=== PATIENT | female | born 1995 | race Caucasian/White ===

== ENCOUNTER 2018-10-01 21:09 | Inpatient (IN) | payer MEDICAID ==
[~2018-10-01] VITALS: Ht 149.9 cm; Wt 55.3 kg
[2018-10-01 22:17] VITALS: Ht 149.9 cm; Wt 55.3 kg
[2018-10-01] MEDS ORDERED: PREN-19 PO (22:19)
[2018-10-01 22:41] VITALS: BP 106/65; PULSE 88; RESP 16
[2018-10-01] MEDS ORDERED: MISOPROSTOL 200 MCG TAB PR PRN (23:00)
[2018-10-01] MEDS ORDERED: CARBOPROST 250 MCG INJ IM PRN (23:00)
[2018-10-01] MEDS ORDERED: METHYLERGONOVINE 0.2 MG INJ IM PRN (23:00)
[2018-10-01] MEDS ORDERED: OXYTOCIN 30 UNITS/LR 500 ML IV SCH (23:00)
[2018-10-01] MEDS ORDERED: OXYTOCIN 30 UNITS/LR 500 ML IV PRN (23:00)
[2018-10-01] MEDS ORDERED: CEFAZOLIN 2 GM/50 ML (PMX) 50 ML IVPB SCH (23:00)
--- NOTE | 2018-10-02 00:38 | TRIAGE ---
OB Triage Datetime Report Generated by CPN: 10/02/2018 00:38 Datetime: 10/02/2018 00:30 Stage of : Labor Labor Evaluation Frequency: 1-3 Monitor Mode: External Duration (sec)2399: 60 Quality: Moderate Pattern: Normal: <= 5 Contractions in 10 Minutes Resting Tone [place]: Relaxed Heart Rate FHR Baseline Rate: 160 Monitor Mode: External US Variability: Moderate 6-25 bpm Accelerations: 15X15 Decelerations: None Datetime: 10/02/2018 00:00 Stage of : Labor Labor Evaluation Frequency: 1-3 Monitor Mode: External Duration (sec)2399: 60 Quality: Moderate Pattern: Normal: <= 5 Contractions in 10 Minutes Resting Tone [place]: Relaxed Heart Rate FHR Baseline Rate: 160 Monitor Mode: External US Variability: Moderate 6-25 bpm Accelerations: 15X15 Decelerations: None Datetime: 10/01/2018 23:39 Assessment Type: Admission Assessment Vaginal Bleeding: None Maternal Assessment Level of Consciousness: Keenly Alert, Responsive DTR's/Clonus: DTRs 2+; No Clonus Headache: Denies Blurred Vision: No Respiratory Effort: Unlabored; Regular Rhythm; Equal Expansion Breath Sounds, Left: Clear and Equal Breath Sounds, Right: Clear and Equal Nausea/Vomiting: Denies RUQ Epigastric Pain: Denies Lower Extremities Edema: None Degree: None Upper Extremities Edema: None Degree: None Facial Edema: None Fall Risk Assessment History of Falling: (0) No Secondary Diagnosis: (0) No Ambulatory Aid: (0) Bedrest/Nurse Assist IV Therapy: (0) No Gait: (0) Normal/Bedrest/Immobile Mental Status: (0) Oriented to Own Ability Fall Score: 0 Fall Risk Score Definition: No Risk: No action required Labor Evaluation Frequency: 2-3 Duration (sec)2399: 60 Quality: Moderate Pattern: Normal: <= 5 Contractions in 10 Minutes Resting Tone [place]: Relaxed Heart Rate FHR Baseline Rate: 135 Variability: Moderate 6-25 bpm Accelerations: 15X15 Decelerations: None Category: Category I Pain Assessment Pain Scale: 6 Pain Presence: Intermittent Pain Type: Contraction Pain Goal: 0 Membrane Status: Intact Datetime: 10/01/2018 23:38 Time of Arrival: 10/01/2018 21:03 EGA: 38.6 Arrived By: Ambulatory Arrived From: Home Chief Complaint: c/o ucs. States scheduled for PC/S d/t pror 4th degree laceration Time Provider Notified: 10/01/2018 22:33 Provider Notified: Dr Crandall Initial Plan: EFM,SVE Datetime: 10/01/2018 23:30 Stage of : Labor Labor Evaluation Frequency: 1-3 Monitor Mode: External Duration (sec)2399: 60 Quality: Moderate Pattern: Normal: <= 5 Contractions in 10 Minutes Resting Tone [place]: Relaxed Heart Rate FHR Baseline Rate: 135 Monitor Mode: External US Variability: Moderate 6-25 bpm Accelerations: 15X15 Decelerations: None Datetime: 10/01/2018 23:00 Stage of : Labor Labor Evaluation Frequency: 1-3 Monitor Mode: External Duration (sec)2399: 60 Quality: Moderate Pattern: Normal: <= 5 Contractions in 10 Minutes Resting Tone [place]: Relaxed Heart Rate FHR Baseline Rate: 135 Monitor Mode: External US Variability: Moderate 6-25 bpm Accelerations: 15X15 Decelerations: None Datetime: 10/01/2018 22:33 Stage of : OB Triage Datetime: 10/01/2018 22:25 Stage of : OB Triage Labor Evaluation Frequency: 2-3 Monitor Mode: External Quality: Moderate Pattern: Normal: <= 5 Contractions in 10 Minutes Resting Tone [place]: Relaxed Heart Rate FHR Baseline Rate: 140 Monitor Mode: External US FHR Baseline Changes: No Baseline Change Variability: Moderate 6-25 bpm Accelerations: 15X15 Decelerations: None Category: Category I Vaginal Exam Dilatation (cms): 2.5 Effacement (%): 70 Station: -2 Exam By: Brett Keita Membrane Status: Intact Vaginal Bleeding: None Cervix, Consistency: Soft Cervix, Position: Midposition Presentation 'A': Cephalic Datetime: 10/01/2018 22:10 Stage of : OB Triage Maternal Assessment Level of Consciousness: Keenly Alert, Responsive Headache: Denies Blurred Vision: No Respiratory Effort: Unlabored Nausea/Vomiting: Denies RUQ Epigastric Pain: Denies Facial Edema: None Monitor Mode: External Resting Tone [place]: Relaxed Heart Rate FHR Baseline Rate: 140 Monitor Mode: External US Pain Assessment Pain Scale: 4 Pain Presence: Intermittent Pain Type: Contraction Pain Location: Abdomen
[2018-10-02] MEDS ORDERED: morphine SULFATE/PF (10 MG/10 ML) INJ ONE (01:17)
[2018-10-02] MEDS ORDERED: FENTAnyl 50 MCG/ML VIAL ONE (01:17)
[2018-10-02] MEDS ORDERED: OXYTOCIN 30 UNITS/LR 500 ML IV ONE (01:31)
[2018-10-02] MEDS ORDERED: ONDANSETRON 4 MG INJ ONE (01:31)
[2018-10-02] MEDS ORDERED: DEXAMETHASONE 4 MG/ML 1 ML INJ ONE (01:31)
[2018-10-02] MEDS ORDERED: PHENYLephrine (100 MCG/ML) 10ML SYG ONE (02:07)
--- NOTE | 2018-10-02 02:14 | OPPN ---
Date/Time of Note Date/Time of Note DATE: 10/02/18 TIME: 02:12 Operative Report Planned Procedure Procedure date Oct 02, 2018 Procedure(s) primary low transverse CD Performed by see signature line Admissions Coordinator: LARISSA HERNANDEZ MD 2nd Admissions Coordinator none Anesthesiologist: ROMA HORTON Pre-procedure diagnosis iup at 39 wks ga in labor, history of 4 degree vaginal/perineal laceration repair, desires elective primary CD, maternal request [id number] Anesthesia Type: Auzwh3u spinal Post-Procedure Post-procedure diagnosis same Findings a viable female 8/9 weight 3,310 grams. normal uterus tubes and ovaries Estimated Blood Loss: 500 - 600 mls (500) Specimen(s) none Grafts/Implant(s) none Complication(s) none LIBERTAD SIBLEY MD Oct 02, 2018 02:14
--- NOTE | 2018-10-02 02:15 | PREAC ---
Date/Time of Note Date/Time of Note DATE: 10/02/18 TIME: 02:14 Anesthesia Eval and Record Evaluation Time Pre-Procedure Interview DATE: 10/02/18 TIME: 0100 Age 22 Sex female NPO: 8 hrs Preoperative diagnosis iup at 39 weeks Planned procedure repeat c section Past Medical History Past Medical History: Includes Heme: Anemia Surgery & Anesthesia Issues No known issue Meds Anticoagulation: No Beta Flex within 24 hr: No Reason Beta Flex not given: Pt. not on B-Flex Reported Medications Vit #76/Iron,Carb/FA (Prenatabs Rx Tablet) 1 Each Tablet, 1 EACH PO DAILY, TAB 10/01/18 Current Medications Lactated Ringer's 1,000 ml @ 125 mls/hr Q8H IV ; Start 10/01/18 at 22:36 Cefazolin Sodium/ Dextrose 50 ml @ 100 mls/hr ONCE IVPB ; Start 10/01/18 at 23:00 Oxytocin/Lactated Ringer's 500 ml @ 125 mls/hr POST IV ; Start 10/01/18 at 23:00 Oxytocin/Lactated Ringer's 500 ml @ 0 mls/hr ONCE PRN IV .VAGINAL BLEEDING; Start 10/01/18 at 23:00 Methylergonovine Maleate (Methergine) 0.2 mg ONCE PRN IM .VAGINAL BLEEDING; Start 10/01/18 at 23:00 Carboprost Tromethamine (Hemabate) 250 mcg ONCE PRN IM .VAGINAL BLEEDING; Start 10/01/18 at 23:00 Misoprostol (Cytotec) 1,000 mcg ONCE PRN MO .VAGINAL BLEEDING; Start 10/01/18 at 23:00 Meds reviewed: Yes Allergies Coded Allergies: No Known Allergy (Unverified , 10/01/18) Allergies Reviewed: Yes Labs/Studies Labs Reviewed: Reviewed by anesthesiologist Result Diagram: 10/01/18 2317 Laboratory Tests 10/01/18 23:17 Blood Bank Test 10/01/18 23:17 Antibody Screen NEGATIVE Blood Type A POSITIVE Rh Immune Globulin Candidate NO test: Positive Pre-procedure Exam Last vitals Vital Signs Date Temp Pulse Resp B/P (MAP) Pulse Ox O2 O2 Flow FiO2 Time Delivery Rate 10/01/18 98.3 88 16 106/65 Room Air 22:41 (79) Airway: Adequate mouth opening, Adequate thyromental dist Mallampati: Mallampati I Teeth: Normal Lung: Normal Heart: Normal ASA Physical Status ASA physical status: 2 Emergency: None Planned Anesthetic Neuraxial: Spinal Planned Pain Management Sub-arachniod narcotics Pre-operative Attestations Prior to commencing anesthesia and surgery, the patient was re-evaluated, there was verification of: *The patient's identity *The results of appropriate recent lab work and preoperative vital signs *The above evaluation not changing prior to induction *Anesthetic plan, risk benefits, alternative and complications discussed with pa tient/family; questions answered; patient/family understands, accepts and wishes to proceed. ROMA HORTON Oct 02, 2018 02:15
[2018-10-02] MEDS ORDERED: OXYCODONE/ACETAMINOPHEN (5/325) TAB PO PRN (02:30)
[2018-10-02] MEDS ORDERED: NACL 0.9% 3 ML SYG IV SCH (02:30)
[2018-10-02] MEDS ORDERED: KETOROLAC 30 MG INJ IV PRN (02:30)
[2018-10-02] MEDS ORDERED: METHYLERGONOVINE 0.2 MG INJ IM PRN (02:30)
[2018-10-02] MEDS ORDERED: ZOLPIDEM 5 MG TAB PO PRN (02:30)
[2018-10-02] MEDS ORDERED: HYDROmorphONE 0.5 MG/0.5 ML SYG IV PRN ×2 (02:30)
[2018-10-02] MEDS ORDERED: OXYTOCIN 30 UNITS/LR 500 ML IV PRN (02:30)
[2018-10-02] MEDS ORDERED: CARBOPROST 250 MCG INJ IM PRN (02:30)
[2018-10-02] MEDS ORDERED: MISOPROSTOL 200 MCG TAB PR PRN (02:30)
[2018-10-02] MEDS ORDERED: LANOLIN HPA 1 PKT TOP PRN (02:30)
[2018-10-02] MEDS ORDERED: NALOXONE (0.4 MG/ML) INJ IV PRN (02:30)
[2018-10-02] MEDS ORDERED: ONDANSETRON 4 MG INJ IV PRN (02:30)
[2018-10-02] MEDS ORDERED: DIPHENHYDRAMINE 50 MG INJ IV PRN (02:30)
[2018-10-02] MEDS ORDERED: CEFAZOLIN 2 GM/50 ML (PMX) 50 ML IVPB SCH (02:30)
--- NOTE | 2018-10-02 02:37 | PREOPHP ---
DATE OF ADMISSION: 10/01/2018 HISTORY OF PRESENT ILLNESS: Ms. Purvi Joe is a 22-year-old 2, para 1, EDC 10/09/2018 intra uterine at 39 weeks gestational age, presented to triage complaining of contractions. She was 3 cm dilated, 50% effaced, -2 station and in labor. Patient has a significant history of a fourt h degree vaginal/perineal laceration in her last and desires an elective delivery, maternal request. [facility] care took place at [facility]. PAST MEDICAL HISTORY: None. MEDICATIONS: vitamins. PAST SURGICAL HISTORY: Vaginal reconstruction repair. OBSTETRICAL HISTORY: x1 vaginal delivery complicated with a vaginal laceration. GYNECOLOGIC HISTORY: 12, regular 3 to 4 days. Denies any sexually transmitted infections. Sexually active with 1 partner. SOCIAL HISTORY: Denies any smoking, drugs or alcohol. FAMILY HISTORY: None. REVIEW OF SYSTEMS: All within normal except history of present illness. PHYSICAL EXAMINATION: HEENT: Within normal. LUNGS: CTA bilateral. CARDIOVASCULAR: S1, S2, regular rhythm. ABDOMEN: Gravid, nontender. Negative CVA bilateral. EXTREMITIES: Negative. No calf tenderness. PELVIC: Vaginal exam 3, 50, -2. heart tracing category 1, toco regular contractions. ASSESSMENT: Intrauterine at 39 weeks gestational age in labor. History of vaginal/perinea l fourth degree laceration repair, desires elective primary , maternal request. PLAN: Consent for a primary . Risks, benefits and alternatives explained. All questions w ere answered. Dictated By: LIEBRTAD CIFUENTES/CARLEEN Conf#: [id number] DID#: [id number]
[2018-10-02] MEDS: LACTATED RINGER'S 1,000 ML IV SCH ×2 (02:58→18:14)
--- NOTE | 2018-10-02 03:01 | OPR ---
DATE OF OPERATION: 10/02/2018 PRIMARY DIAGNOSES: Intrauterine at 39 weeks gestational age, in labor. History of fourth degree vaginal/perineal laceration repair, desires elective primary delivery, maternal reque st. POSTOPERATIVE DIAGNOSES: Intrauterine at 39 weeks gestational age, in labor. History of f ourth degree vaginal/perineal laceration repair, desires elective primary delivery, maternal request. PROCEDURE: Primary low transverse delivery. SURGEON: Andres Cranadll MD. VICE PRESIDENT BIOSTATISTICS: Dr. Isma Sparrow. ANESTHESIOLOGIST: Dr. Jesus Philippe. ANESTHESIA: Spinal. COMPLICATIONS: None. ESTIMATED BLOOD LOSS: 500 mL. FINDINGS: A viable female, 8 and 9 respectively at 1 and 5 minutes, weight 3310 grams. Normal uterus, tubes and ovaries. DESCRIPTION OF PROCEDURE: After explaining the risks, benefits and alternatives, the patient had con sent signed in chart, the patient was taken to the operating room where a spinal anesthesia was found to be adequate. She was then prepared and draped in normal sterile fashion in dorsal position with a leftward tilt. A Pfannenstiel skin incision was then made with a scalpel and carried to the underl carroll layer of the fascia. The fascia was incised in midline, incision was extended laterally with Ma yo scissors. The superior aspect of the fascial incision was grasped with curved clamps, elevated an d the underlying rectus muscles dissected off bluntly. Attention was then turned to the inferior asp ect incision which in similar fashion was grasped, tented up with curved clamps and the rectus muscle s dissected off bluntly. The rectus muscles were in midline, peritoneum identified, tented up, entered sharply with Metzenbaum scissors. The peritoneal incision was then extended superiorly with good visualization of bladder. The bladder blade was inserted and the lower uterine segment inc ised in transverse fashion with a scalpel. The uterine incision was extended laterally. The bladder blade was removed and the infant's head delivered atraumatically and the nose and mouth were suction ed and cord clamped and cut. The was handed off to waiting director of perioperative services. The placenta was th en removed. The uterus exteriorized and cleared of all clots and debris. The uterine incision was r epaired with 1-0 chromic in a running locked fashion. A second layer of the same suture was used for imbrication obtaining excellent hemostasis. The uterus was returned to the abdomen. The gutters we re cleared of all clots. The peritoneum and rectus abdominis muscles reapproximated with 2-0 Vicryl in interrupted fashion. The fascia was reapproximated with 0 Vicryl in a running fashion. The skin was closed with absorbable sandra. The patient tolerated procedure well. All counts were correct. The patient was taken to recovery room in stable condition. Dictated By: ANDRES CIFUENTES/CARLEEN Conf#: [id number] DID#: [id number]
[2018-10-02 05:00] VITALS: BP 112/63; PULSE 72; RESP 18
[2018-10-02] MEDS: OXYTOCIN 30 UNITS/LR 500 ML IV SCH ×2 (05:00→07:45)
[2018-10-02] MEDS: IBUPROFEN 600 MG TAB PO SCH ×3 (06:00→18:00)
[2018-10-02 08:00] VITALS: BP 105/57; PULSE 93; RESP 16
--- NOTE | 2018-10-02 08:30 | PAC ---
Date/Time of Note Date/Time of Note DATE: 10/02/18 TIME: 08:29 Post-Anesthesia Notes Post-Anesthesia Note Last documented vital signs Vital Signs Date Temp Pulse Resp B/P (MAP) Pulse Ox O2 O2 Flow FiO2 Time Delivery Rate 10/02/18 97.4 72 18 112/63 100 Room Air 06:00 (79) Activity: WNL Respiratory function: WNL Cardiovascular function: WNL Mental status: Baseline Pain reasonably controlled: Yes Hydration appropriate: Yes Nausea/Vomiting absent: Yes ROMA HORTON Oct 02, 2018 08:30
[2018-10-02] MEDS: CEFAZOLIN 2 GM/50 ML (PMX) 50 ML IVPB SCH ×3 (09:06→23:23)
[2018-10-02 12:00] VITALS: BP 117/57; PULSE 87; RESP 18
[2018-10-02 15:50] VITALS: BP 102/55; PULSE 82; RESP 18
[2018-10-02 16:00] VITALS: BP 102/55; PULSE 82; RESP 18
[2018-10-02 19:30] VITALS: BP 107/61; PULSE 86; RESP 18
[2018-10-03 00:24] VITALS: BP 95/55; PULSE 82; RESP 18
[2018-10-03 04:00] VITALS: BP 97/53; PULSE 86; RESP 18
[2018-10-03] MEDS: IBUPROFEN 600 MG TAB PO SCH ×4 (05:51→17:54)
[2018-10-03 10:49] VITALS: BP 90/58; PULSE 84; RESP 18
[2018-10-03 15:41] VITALS: BP 100/56; PULSE 78; RESP 18
--- NOTE | 2018-10-03 18:37 | QN ---
Documentation Comment progress note pod 1 patient seen and evaluated no complaints vs stable afebrile ab c/d/i no distent extremity no edema no calf tenderness a/ sp cd pod 1 stable afebrile p/ iron supplement encourage ambulation LIBERTAD SIBLEY MD Oct 03, 2018 18:37
--- NOTE | 2018-10-03 19:01 | QN ---
Documentation Comment progress note pod 1 patient seen and evaluated no complaints vs stable afebrile ab dressing clean no distent extremity no edema no calf tenderness a/ sp cd pod 1 stable afebrile p/ iron supplement encourage ambulation LIBERTAD SIBLEY MD Oct 03, 2018 19:01
[2018-10-03 20:10] VITALS: PULSE 88; RESP 18
[2018-10-03] MEDS ORDERED: FERROUS SULFATE (EC) 325 MG TAB PO SCH (21:00)
[2018-10-03] MEDS: FERROUS SULFATE (EC) 325 MG TAB PO SCH (21:25)
[2018-10-04] MEDS: IBUPROFEN 600 MG TAB PO SCH ×5 (00:23→23:49)
[2018-10-04 04:20] VITALS: BP 104/60; PULSE 84; RESP 19
[2018-10-04 08:15] VITALS: BP 108/64; PULSE 79; RESP 18
[2018-10-04] MEDS: FERROUS SULFATE (EC) 325 MG TAB PO SCH ×2 (08:42→22:23)
--- NOTE | 2018-10-04 12:56 | QN ---
Documentation Comment progress note pod 2 patient seen and evaluated no complaints vs stable afebrile ab c/d/i no distent extremity no edema no calf tenderness a/ sp cd pod stable afebrile p/ discharge home tomorrow LIBERTAD SIBLEY MD Oct 04, 2018 12:56
--- NOTE | 2018-10-04 12:58 | PD.PPDC ---
[employer] Discharge Instruction Condition [id number] Patient Condition: [id number] Fair Diet Lscru3Ja Diet: Iouoq2a Resume Regular Diet Activity/Restrictions Pqrwu8Vx Activity: Hdcfd2v Normal Activity May Shower Ggsmp4Ho Restrictions: Qdqrh0j No Exercising No Lifting No Driving No Sexual Activity Nothing in the Vagina No [place] No Tampons, douche Follow-up Follow-up with Physician: 2, Week/Weeks Return to clinic for Hbibk8Tb [employer] SALESPERSON Instructions: Icefm6x Fever greater than 101 Chills Worsening abdominal pain Excessive Vaginal Bleeding More than 2 pads per hour Unable to tolerate diet Glvuc9Iq OB Instructions: Eedni1q Breast Tenderness Depression Blurried Vision Headache Eruxi3Tp Surgical Instructions: Blytq7p Incisional Drainage Incisional Redness LIBERTAD SIBLEY MD Oct 04, 2018 12:58
[2018-10-04 16:13] VITALS: BP 99/60; PULSE 74; RESP 18
[2018-10-04 20:10] VITALS: BP 104/62; RESP 18
[2018-10-05 04:17] VITALS: BP 102/60; PULSE 78; RESP 18
--- NOTE | 2018-10-05 05:48 | DS ---
DATE OF ADMISSION: 10/01/2018 DATE OF DISCHARGE: 10/04/2018 PRIMARY DIAGNOSES: 1. Intrauterine at 39 weeks gestational age in labor. 2. History of fourth-degree vaginal laceration repair. 3. Desires elective primary delivery at maternal request. PROCEDURE: Primary low transverse delivery. CONDITION ON DISCHARGE: Stable. ACTIVITY: None per vagina, no heavy lifting x6 weeks. DIET: Regular. MEDICATIONS ON DISCHARGE: 1. Motrin. 2. Iron. 3. Colace. DISCHARGE SUMMARY: Ms. Jocelyne Joe underwent a primary low transverse delivery on 9. She had a viable female, Apgars 8 and 9 respectively at 1 and 5 minutes, weight 3310 grams. She had an uneventful postop day 1 and 2. She was discharged on postop day 3. Her incision is clean, dr y, and intact. She is ambulating, tolerating diet, positive flatulence, positive bowel sounds. She will follow up in the clinic in 2 weeks for /postop care. Dictated By: LIBERTAD CIFUENTES/CARLEEN Conf#: [id number] DID#: [id number]
[2018-10-05] MEDS: IBUPROFEN 600 MG TAB PO SCH ×2 (05:58→11:45)
[2018-10-05 07:40] VITALS: BP 92/54; PULSE 77; RESP 17
[2018-10-05] MEDS ORDERED: SENNA/DOCUSATE NA (8.6MG/50MG) TAB PO SCH (09:00)
[2018-10-05] MEDS: FERROUS SULFATE (EC) 325 MG TAB PO SCH (09:18)
--- NOTE | 2018-10-05 21:11 | DS ---
Date/Time of Note Date/Time of Note DATE: 10/05/18 TIME: 21:10 Obstetrical Discharge Record Final Diagnosis Final Diagnosis: Term delivered Other Final Diagnosis POD#3 s/p elective primary c/section Patient tolerating regular diet and ambulating positive flatus and voiding patient stable and afebrile VS - Last 72 Hours, by Label Date Temp Pulse Resp B/P (MAP) Pulse Ox O2 O2 Flow FiO2 Time Delivery Rate 10/05/18 98.1 77 17 92/54 (67) Room Air 07:40 10/05/18 98.0 78 18 102/60 Room Air 04:17 (74) 10/04/18 98.0 18 104/62 Room Air 20:10 (76) 10/04/18 98.2 74 18 99/60 (73) 16:13 10/04/18 98.1 79 18 108/64 Room Air 08:15 (79) 10/04/18 98.0 84 19 104/60 Room Air 04:20 (75) 10/03/18 98.5 88 18 Room Air 20:10 10/03/18 98.0 78 18 100/56 Room Air 15:41 (71) 10/03/18 98.4 84 18 90/58 (69) Room Air 10:49 10/03/18 98.5 86 18 97/53 (68) Room Air 04:00 10/03/18 98.1 82 18 95/55 (68) 94 Room Air 00:24 Hematology - 72 Hrs Test 10/03/18 07:45 Hematocrit 29.4 % (37.0-47.0) L Hemoglobin 9.3 g/dl (12.0-16.0) L Mean Corpuscular Hemoglobin 28.7 pg (29.0-33.0) L Mean Corpuscular Hemoglobin Concent 31.6 g/dl (32.0-37.0) L Mean Corpuscular Volume 90.7 fl (72.0-104.0) Mean Platelet Volume 11.2 fl (7.4-10.4) H Platelet Count 189 10^3/UL (140-415) Red Blood Count 3.24 10^6/ul (4.20-5.40) L Red Cell Distribution Width 15.1 % (11.5-14.5) H White Blood Count 8.8 10^3/ul (4.8-10.8) discharge home today patient instructed to follow up with [facility] in two weeks and six weeks Section Section: Primary Condition on Discharge Physical Assessment Last Vitals: VS - Last 72 Hours, by Label Date Temp Pulse Resp B/P (MAP) Pulse Ox O2 O2 Flow FiO2 Time Delivery Rate 10/05/18 98.1 77 17 92/54 (67) Room Air 07:40 10/05/18 98.0 78 18 102/60 Room Air 04:17 (74) 10/04/18 98.0 18 104/62 Room Air 20:10 (76) 10/04/18 98.2 74 18 99/60 (73) 16:13 10/04/18 98.1 79 18 108/64 Room Air 08:15 (79) 10/04/18 98.0 84 19 104/60 Room Air 04:20 (75) 10/03/18 98.5 88 18 Room Air 20:10 10/03/18 98.0 78 18 100/56 Room Air 15:41 (71) 10/03/18 98.4 84 18 90/58 (69) Room Air 10:49 10/03/18 98.5 86 18 97/53 (68) Room Air 04:00 10/03/18 98.1 82 18 95/55 (68) 94 Room Air 00:24 Voiding: Yes Bowel Movement: Yes Breast: Soft, non-tender Fundus: Firm Calf Tenderness: No Patient Condition: Good Copies To: CC: LIBERTAD SIBLEY MD ; OANH ROSEN MD Oct 05, 2018 21:10
--- NOTE | 2018-10-06 14:38 | DELSUM ---
Delivery Summary A-C Datetime Report Generated by CPN: 10/06/2018 14:38 DELIVERY PERSONNEL Yoga Instructor: Lee, Ursula MATERNAL INFORMATION Delivery Anesthesia: Spinal Medications in Delivery: SEE ANESTHESIA FLOWSHEET Delivery QBL (ml): 500 Placenta Cultured: No Maternal Complications: None LABOR SUMMARY EDC: 10/09/2018 00:00 No. Babies in Womb: 1 Attempted: No Labor Anesthesia: Epidural LABOR INFORMATION Reason for Induction: Not Applicable Onset of Labor: 10/01/2018 14:00 Group B Beta Strep: Negative Antibiotics # of Doses: 1 Antibiotics Time of Last Dose: 10/02/2018 01:15 Steroids Given: None Reason Steroids Not Administered: Not Applicable MEMBRANES Membranes Rupture Method: Artificial Rupture of Membranes: 10/02/2018 01:45 Length of Rupture (hr): 0.02 Amniotic Fluid Color: Clear Amniotic Fluid Amount: Small Amniotic Fluid Odor: None STAGES OF LABOR Stage 3 hr: 0 Stage 3 min: 0 Total Time in Labor hr: 11 Total Time in Labor min: 46 CSECTION DELIVERY Primary Indication: Other Other Primary Indication: ELECTIVE CSection Urgency: Elective CSection Incidence: Primary BABY A INFORMATION Infant Delivery Date/Time: 10/02/2018 01:46 Method of Delivery: Born in Route : No : N/A Forceps: N/A Vacuum Extraction: N/A Shoulder Dystocia : N/A SHOULDER DYSTOCIA BABY A Infant Delivery Date/Time: 10/02/2018 01:46 PRESENTATION/POSITION BABY A Presentation: Cephalic Cephalic Presentation: Vertex Breech Presentation: N/A PLACENTA INFORMATION BABY A Placenta Delivery Time : 10/02/2018 01:46 Placenta Method of Delivery: Manual Removal Placenta Status: Delivered SCORES BABY A Heart Rate 1 min: >100 bpm Resp Effort 1 min: Good Cry Reflex Irritability 1 min: Cough/Sneeze/Pulls Away Muscle Tone 1 min: Active Motion Color 1 min: Blue/Pale Resuscitation Effort 1 min: Tactile Stimulation SCORE 1 MIN: 8 Heart Rate 5 min: >100 bpm Resp Effort 5 min: Good Cry Reflex Irritability 5 min: Cough/Sneeze/Pulls Away Muscle Tone 5 min: Active Motion Color 5 min: Body [place], Extremit Blue Resuscitation Effort 5 min: Tactile Stimulation SCORE 5 MIN: 9 INFORMATION BABY A Gestational Age at Delivery: 39.0 Gestational Status: Full Term- 39- 40.6 Weeks Outcome : Liveborn, with signs of life Condition : Stable Sex: Female IDENTIFICATION/MEDS BABY A ID Band Number: [id number] ID Band Location: Right Leg; Left Arm Sensor Number: [id number] Sensor Location : Cord Clamp Vitamin K Given : Not Given Erythromycin Given: Not Given WEIGHT/LENGTH BABY A Infant Birthweight (gm): 3310 Weight (lb): 7 Weight (oz): 5 Infant Length (in): 18.50 Infant Length (cm): 46.99 CORD INFORMATION BABY A No. Cord Vessels: 3 Nuchal Cord : N/A Cord Blood Taken: Yes Suction: Mouth; Nose ASSESSMENT BABY A Complications: None Physical Findings at Delivery: Within Normal Limits Infant Respirations: Appears Normal Doubling Machine Operator/ALS Called : No Care By: OSEAS DUNNE Transferred To: Remains with Mother
== END 2018-10-05 14:37 | disposition home or self-care (01) | DRG 788 ==
LOC: OBT 21:09 → L-D 21:11 → OBT 22:33 → L-D 23:21 → PP1 10-02 04:53
PROVIDERS: ADMIT Obstetrics & Gynecology; ATTEND Obstetrics & Gynecology
PROC: 10D00Z1 Extraction of Products of Conception, Low, Open Approach (ICD-10-PCS; principal; 2018-10-02)
DX: O82 Encounter for cesarean delivery without indication (principal); O99.02 Anemia complicating childbirth; D64.9 Anemia, unspecified; Z3A.39 39 weeks gestation of pregnancy; Z37.0 Single live birth; Z87.59 Personal history of other complications of pregnancy, childbirth and the puerperium
CPT/HCPCS: 81001; 85025; 85610; 85730; 86592; 86850; 86900; 86901; 87340; 87591; 99464; G0463; J0690; J1100; J1885; J2274; J2370; J2405; J2590; J3010; J7120